=== PATIENT | female | born 1930 | race Caucasian/White ===

== ENCOUNTER 2016-06-20 02:45 | Observation (INO) | payer MEDICARE ==
[2016-06-20] VITALS (8 sets, daily range): BP systolic 144–194; BP diastolic 67–96; PULSE 77–98; RESP 16–24; TEMP 96.9–97.7; O2SAT 93–99
[~2016-06-20 02:45] MED LIST: HYDR-3534 PO; LEVO OU; LISI-515 PO; MIRA25TA PO; [UNRECOGNIZED DRUG - CODE] EACH EYE
[2016-06-20 03:21] LABS: HEMATOCRIT 33.1 % (35.0-46.0); MEAN CORPUSCULAR HEMOGLOBIN 30.9 PG (27.0-34.0); MEAN CORPUSCULAR HGB CONC 33.2 % (32.0-36.0); PLATELET COUNT 227 TH/MM3 (150-450); RED BLOOD COUNT 3.56 MIL/MM3 (4.00-5.30); RED CELL DISTRIBUTION WIDTH 14.1 % (11.6-17.2); REVIEW FLAG FINAL; WHITE BLOOD COUNT 6.7 TH/MM3 (4.0-11.0)
[2016-06-20 03:47] LABS: APTT (PATIENT) 19.6 SEC (24.3-30.1); INTERNATIONAL NORMALIZED RATIO 0.9 RATIO; PROTHROMBIN TIME - PATIENT 10.1 SEC (9.8-11.6)
[2016-06-20] MEDS ORDERED: TOBRSUS9 EACH EYE (04:33)
[2016-06-20 04:54] LABS: BICARBONATE 30.6 MEQ/L (21.0-32.0)
[2016-06-20 04:59] LABS: BLOOD, URINE NEG (NEG); GLUCOSE,URINE NEG (NEG); HYALINE CAST, URINE 1 /lpf (RARE); KETONE, URINE 10 mg/dL (NEG); NITRITE,URINE NEG (NEG); PH, URINE 6.5 (5.0-8.5); SQUAMOUS EPITHELIAL CELL URINE <1 /hpf (0-5); URINE COLOR YELLOW (YELLW/STRAW)
[2016-06-20 05:01] LABS: COMMENT (UR) CATH-CULT NOT IND; CULTURE IF INDICATED CATH CULTURE NOT IND
--- NOTE | 2016-06-20 05:29 | PD ---
HPI Chief Complaint: Altered Mental Status Time Seen by Provider: 05:28 Travel History International Travel<30 days: No Contact w/Intl Traveler<30days: No Traveled to known affect area: No History of Present Illness HPI The patient is a 5 years old. She arrives with her health care provider and her daughter. She does have a history of dementia with a gradual decline over the last several months. The patient yesterday had difficulty ambulating evidently dragging her right foot behind her which was abnormal. Later that evening she had a fall however made no call to her [employer]. She is found on the floor. Throughout the course of the day yesterday she was intermittently aphasic. She had a left facial droop and one time. Family member describes difficulty finding words. At one point slurred speech was observed. She arrives to the ER without any neurologic deficit or specific complaint however the family is concerned the patient might be dehydrated. Patient has history of HOUSEHOLD PERSONAL ASSISTANT shunt performed by Dr. Rush at [facility]. [facility] Past Medical History Arthritis: Yes Cancer: Yes (BREAST) Diabetes: No Diminished Hearing: No Glaucoma: Yes Hepatitis: No Hiatal Hernia: No Hypertension: Yes Thyroid Disease: No ?: Not Past Surgical History Abdominal Surgery: No Cardiac Surgery: No Ear Surgery: No Endocrine Surgery: No Eye Surgery: Yes (BILATERAL CATARACT SX) Genitourinary Surgery: No Gynecologic Surgery: No Oral Surgery: No Pacemaker: No Thoracic Surgery: No Tonsillectomy: Yes Other Surgery: Yes (S/P L BREAST LUMPECTOMY, S/P B/L CATARACT XIN) Social History Alcohol Use: No Tobacco Use: No Substance Use: No Allergies-Medications (Allergen,Severity, Reaction): Coded Allergies: Adhesives (Verified Allergy, Mild, 06/20/16) Ketoprofen (Unverified Allergy, Unknown, 06/20/16) Reported Meds & Prescriptions Reported Meds & Active Scripts Active Reported Tobramycin-Dexamethasone Opth Drops 0.3-0.1 % Susp 1 Drop EACH EYE DAILY Lisinopril 20 Mg Tab 20 Mg PO DAILY Lortab (Hydrocodone-Acetaminophen) 7.5-325 Mg Tab 1 Tab PO Q6H PRN Myrbetriq (Mirabegron) 25 Mg Tab 25 Mg PO DAILY Betagan Opth Drops (Levobunolol HCl) 0.5% Drops 1-2 Drop EACH EYE BID Review of Systems Except as stated in HPI: all other systems reviewed are Neg Physical Exam Narrative GENERAL: 85-year-old female pleasant no acute distress SKIN: Warm and dry. HEAD: Atraumatic. Normocephalic. EYES: Pupils equal and round. No scleral icterus. No injection or drainage. ENT: No nasal bleeding or discharge. Mucous membranes pink and moist. NECK: Trachea midline. No JVD. CARDIOVASCULAR: Regular rate and rhythm. No murmur appreciated. RESPIRATORY: No accessory muscle use. Clear to auscultation. Breath sounds equal bilaterally. GASTROINTESTINAL: Abdomen soft, non-tender, nondistended. Hepatic and splenic margins not palpable. MUSCULOSKELETAL: No obvious deformities. No clubbing. No cyanosis. No edema. NEUROLOGICAL: Awake and alert. No obvious cranial nerve deficits. Motor grossly within normal limits. Normal speech. PSYCHIATRIC: Appropriate mood and affect; insight and judgment normal. Data Data Last Documented VS Vital Signs Date Time Temp Pulse Resp B/P Pulse Ox O2 Delivery O2 Flow Rate FiO2 06/20/16 06:34 94 16 151/70 94 Room Air 06/20/16 02:53 97.7 Vital signs reviewed Orders Cbc No Diff, Includes Plts (06/20/16 03:00) Basic Metabolic Panel (Bmp) (06/20/16 03:00) Coag Profile (06/20/16 03:02) Urinalysis - C+S If Indicated (06/20/16 04:31) Shuntogram (06/20/16 ) Ct Brain W/O Iv Contrast(Rout) (06/20/16 06:08) Ecg Monitoring (06/20/16 06:08) Iv Access Insert/Monitor (06/20/16 06:08) Oximetry (06/20/16 06:08) Sodium Chloride 0.9% Flush (Ns Flush) (06/20/16 06:15) Sodium Chlor 0.9% 1000 Ml Inj (Ns 1000 M (06/20/16 06:08) Place In Observation (06/20/16 ) Code Status (06/20/16 07:01) Vital Signs (Adult) Q4H (06/20/16 07:01) Activity Oob With Assistance (06/20/16 07:01) Diet Heart Healthy (06/20/16 Breakfast) Sodium Chloride 0.9% Flush (Ns Flush) (06/20/16 07:15) Sodium Chloride 0.9% Flush (Ns Flush) (06/20/16 09:00) Acetaminophen (Tylenol) (06/20/16 07:15) Ondansetron Inj (Zofran Inj) (06/20/16 07:15) Bisacodyl Supp (Dulcolax Supp) (06/20/16 07:15) Magnesium Hydroxide Liq (Milk Of Magnesi (06/20/16 07:15) Pt Request For Service (06/20/16 07:01) Scd Bilateral/Knee High CARLI.BID (06/20/16 07:01) Naloxone Inj (Narcan Inj) (06/20/16 07:15) Consult Neurosurgery (06/20/16 ) Admit Order (Ed Use Only) (06/20/16 07:16) Labs Laboratory Tests Test 06/20/16 06/20/16 06/20/16 03:00 03:36 04:25 White Blood Count 6.7 TH/MM3 Red Blood Count 3.56 MIL/MM3 Hemoglobin 11.0 GM/DL Hematocrit 33.1 % Mean Corpuscular Volume 93.0 FL Mean Corpuscular Hemoglobin 30.9 PG Mean Corpuscular Hemoglobin 33.2 % Concent Red Cell Distribution Width 14.1 % Platelet Count 227 TH/MM3 Mean Platelet Volume 8.6 FL Prothrombin Time 10.1 SEC Prothromb Time International 0.9 RATIO Ratio Activated Partial 19.6 SEC Thromboplast Time Sodium Level 144 MEQ/L Potassium Level 4.0 MEQ/L Chloride Level 108 MEQ/L Carbon Dioxide Level 30.6 MEQ/L Anion Gap 5 MEQ/L Blood Urea Nitrogen 31 MG/DL Creatinine 0.68 MG/DL Estimat Glomerular Filtration 82 ML/MIN Rate Random Glucose 95 MG/DL Calcium Level 8.7 MG/DL Urine Color YELLOW Urine Turbidity CLEAR Urine pH 6.5 Urine Specific Richardson 1.024 Urine Protein TRACE mg/dL Urine Glucose (UA) NEG mg/dL Urine Ketones 10 mg/dL Urine Occult Blood NEG Urine Nitrite NEG Urine Bilirubin NEG Urine Urobilinogen LESS THAN 2.0 MG/DL Urine Leukocyte Esterase NEG Urine RBC LESS THAN 1 /hpf Urine WBC 1 /hpf Urine Squamous Epithelial <1 /hpf Cells Urine Hyaline Casts 1 /lpf Microscopic Urinalysis Comment CATH-CULT NOT IND MDM Medical Decision Making Medical Screen Exam Complete: Yes Emergency Medical Condition: Yes Medical Record Reviewed: Yes Differential Diagnosis Dehydration, UTI, pneumonia, HOUSEH[employer] PERSONAL ASSISTANT shunt diagram abnormality, stroke, TIA, electrolyte imbalance, metabolic disturbance, polypharmacy, intracranial injury Narrative Course CBC & BMP Diagram 06/20/16 03:00 06/20/16 03:36 UA normal Coags normal Last Impressions Head CT 06/20/16 0608 Signed Impressions: Service Date/Time: Monday, June 20, 2016 06:24 - CONCLUSION: 1. No acute intracranial abnormality is identified. 2. Chronic changes include generalized cerebral atrophy and periventricular white matter low attenuation characteristic of chronic microvascular ischemia. 3. A right frontal HOUSEHOLD PERSONAL ASSISTANT shunt is present with tubing in the midline of the frontal horns. Gordo Cary MD 1L NS ordered. D/w Dr Enamorado. HOUSEHOLD PERSONAL ASSISTANT shuntogram pending at time of admission. Consult to neurosurgery placed. Diagnosis Primary Impression: Dehydration Additional Impressions: Facial droop Dysarthria Admitting Information Admitting Physician Requests: Observation Tristin Felder MD Jun 20, 2016 05:29
[2016-06-20] MEDS ORDERED: SODIUM CHLOR 0.9% 1000 ML INJ 1,000 ML IV SCH (06:08)
[2016-06-20] MEDS ORDERED: SODIUM CHLORIDE 0.9% FLUSH 5 ML FLUSH IVF PRN (06:15)
--- NOTE | 2016-06-20 06:36 | RADRPT ---
EXAM DATE/TIME: 06/20/2016 06:24 [facility] COMPARISON: CT BRAIN W/O CONTRAST, December 17, 2012, 8:23. INDICATIONS : Altered mental status. RADIATION DOSE: 36.53 CTDIvol (mGy) MEDICAL HISTORY : Hypertension. Carcinoma, breast. SURGICAL HISTORY : shunt ENCOUNTER: Initial ACUITY: 1 day PAIN SCALE: 0/10 LOCATION: cranial TECHNIQUE: Multiple contiguous axial images were obtained of the head. Using automated exposure control and adj ustment of the mA and/or kV according to patient size, radiation dose was kept as low as reasonably a chievable to obtain optimal diagnostic quality images. FINDINGS: CEREBRUM: There is mild cerebral atrophy and ventricles are normal in size given the degree of atrophy present. There is mild to moderate periventricular white matter low attenuation. Right frontal GUNNER MATE shunt tubin g tip is in the midline of the frontal horns. No evidence of midline shift, mass lesion, hemorrhage or acute infarction. No extra-axial fluid collections are seen. POSTERIOR FOSSA: The cerebellum and brainstem demonstrate no acute finding. The 4th ventricle is midline. The cerebe llopontine angle is unremarkable. EXTRACRANIAL: Visualized sinuses are clear. SKULL: The calvaria is intact. No evidence of skull fracture. CONCLUSION: 1. No acute intracranial abnormality is identified. 2. Chronic changes include generalized cerebral atrophy and periventricular white matter low attenuat ion characteristic of chronic microvascular ischemia. 3. A right frontal GUNNER MATE shunt is present with tubing in the midline of the frontal horns. Gordo Cary MD on June 20, 2016 at 6:32 Board Certified Radiologist. This report was verified electronically.
[2016-06-20] MEDS ORDERED: ACETAMINOPHEN 325 MG TAB PO PRN (07:15)
[2016-06-20] MEDS ORDERED: ONDANSETRON HCL 4 MG/2 ML VIAL IVP PRN (07:15)
[2016-06-20] MEDS ORDERED: BISACODYL 10 MG SUPP PR PRN (07:15)
[2016-06-20] MEDS ORDERED: MAGNESIUM HYDROXIDE SUSP 30 ML CUP PO PRN (07:15)
[2016-06-20] MEDS ORDERED: NALOXONE HCL 0.4 MG/ML AMP IV PRN (07:15)
[2016-06-20] MEDS ORDERED: SODIUM CHLORIDE 0.9% FLUSH 5 ML FLUSH FLUSH PRN (07:15)
--- NOTE | 2016-06-20 08:55 | PD.CONS ---
History of Present Illness Service Neurosurgery Consult Requested By Dr. Banks-emergency room Reason for Consult Evaluate for possible shunt malfunction Primary Care Physician No Primary Care Physician Diagnoses: History of Present Illness Pleasant 85-year-old female with a history of previous CVA in 2012. She reportedly had a history of hydrocephalus prior to the CVA, but did not receive any intervention for this. Following the CVA, she has significant gait deficit , and eventually underwent a ventriculoperitoneal shunt placement by Dr. Rush in [facility] in 2012 which did significantly improve her ambulation. She continued a course of inpatient rehabilitation and did very well and was eventually discharged home approximately February 2013. She has been living at home with assistance and doing relatively well up until last week when she developed some gait difficulty, apparently limping on her dragging her right leg. She does have a history of scoliosis with intermittent low back pain. She also has a history of dementia. In the past 2 or 3 days she has had at least 2 episodes of slurred-garbled speech and also at least one episode of facial drooping. Last evening she had significant speech deficit which has since resolved again. She has also had intermittent headache. No blurred vision, loss of vision, nausea, vomiting, fevers, chills. Review of Systems Constitutional: COMPLAINS OF: Change in appetite, DENIES: Fever, Chills, Dizziness Eyes: DENIES: Diplopia, Vision loss Ears, nose, mouth, throat: DENIES: Vertigo, Throat pain Respiratory: DENIES: Cough, Shortness of breath Cardiovascular: DENIES: Chest pain, Palpitations Gastrointestinal: DENIES: Abdominal pain, Constipation, Diarrhea, Nausea Musculoskeletal: COMPLAINS OF: Joint pain, Back pain, Neck pain Neurologic: COMPLAINS OF: Abnormal gait, Headache, Localized weakness, Speech Problems, Poor Balance Psychiatric: COMPLAINS OF: Confusion Past Family Social History Allergies: Coded Allergies: Adhesives (Verified Allergy, Mild, 06/20/16) Ketoprofen (Unverified Allergy, Unknown, 06/20/16) Past Medical History Breast cancer Dementia Hypertension Glaucoma Hydrocephalus Previous CVA Past Surgical History Breast lumpectomy Ventriculoperitoneal shunt placement Tonsillectomy Cataract surgery Reported Medications Reported Meds & Active Scripts Active Reported Tobramycin-Dexamethasone Opth Drops 0.3-0.1 % Susp 1 Drop EACH EYE DAILY Lisinopril 20 Mg Tab 20 Mg PO DAILY Lortab (Hydrocodone-Acetaminophen) 7.5-325 Mg Tab 1 Tab PO Q6H PRN Myrbetriq (Mirabegron) 25 Mg Tab 25 Mg PO DAILY Betagan Opth Drops (Levobunolol HCl) 0.5% Drops 1-2 Drop EACH EYE BID Family History No history of neurologic disorders, cancer, cardiac disease per patient to otherwise appears to be somewhat poor historian Social History Lives at home with assistance. No alcohol or tobacco use Physical Exam Vital Signs Vital Signs Date Time Temp Pulse Resp B/P Pulse Ox O2 Delivery O2 Flow Rate FiO2 06/20/16 08:24 98 16 145/67 96 06/20/16 06:34 94 16 151/70 94 Room Air 06/20/16 05:36 94 18 182/81 93 Room Air 06/20/16 02:53 97.7 85 16 144/82 97 Physical Exam GENERAL: This is a well-nourished, well-developed patient, in no apparent distress. SKIN: No rashes, ecchymoses or lesions. Cool and dry. HEAD: Atraumatic. Normocephalic. No temporal or scalp tenderness. Right ventricular peritoneal shunt tract is nontender, no edema or erythema EYES: Sclerae are clear and nonicteric ENT: No facial edema or ecchymosis. Fundi not well seen due to cataracts. Oropharynx clear NECK: Trachea midline. No JVD or lymphadenopathy. Supple, nontender, no meningeal signs. CARDIOVASCULAR: Occasional irregular rhythm. No murmur. Right carotid bruit RESPIRATORY: Clear to auscultation. Breath sounds equal bilaterally. No wheezes , rales, or rhonchi. GASTROINTESTINAL: Abdomen soft, non-tender, nondistended. No hepato-splenomegaly , or palpable masses. No guarding. MUSCULOSKELETAL: Lower extremity edema dorsalis pedis pulses 2+ bilateral. Mild right hip discomfort with range of motion. Mild discomfort right lower lumbar paraspinous region. NEUROLOGICAL: Awake and alert Oriented X person, hospital Speech is clear, slightly slow but without significant dysarthria Conversant and appropriate Follow simple commands with some difficulty Answers questions appropriately Appears to have some diminished judgment and insight Recent and remote memory are moderately impaired No evidence of anxiety or depression Pupils are equal and reactive to accommodation. Extra-ocular movements, visual cisneros to confrontation, facial sensorimotor, tongue, palate, sternocleidomastoid testing, hearing to finger rub testing, and bilateral shoulder shrug are all intact. Sensation is intact to light touch in all extremities Strength normal major flexion and extension groups all extremities Reggie's absent bilaterally No ankle clonus Plantar responses absent bilateral Fine motor movements mildly slowed but within normal limits for age in the bilateral upper extremities Laboratory Laboratory Tests Test 06/20/16 06/20/16 06/20/16 03:00 03:36 04:25 White Blood Count 6.7 Red Blood Count 3.56 Hemoglobin 11.0 Hematocrit 33.1 Mean Corpuscular Volume 93.0 Mean Corpuscular Hemoglobin 30.9 Mean Corpuscular Hemoglobin 33.2 Concent Red Cell Distribution Width 14.1 Platelet Count 227 Mean Platelet Volume 8.6 Prothrombin Time 10.1 Prothromb Time International 0.9 Ratio Activated Partial 19.6 Thromboplast Time Sodium Level 144 Potassium Level 4.0 Chloride Level 108 Carbon Dioxide Level 30.6 Anion Gap 5 Blood Urea Nitrogen 31 Creatinine 0.68 Estimat Glomerular Filtration 82 Rate Random Glucose 95 Calcium Level 8.7 Urine Color YELLOW Urine Turbidity CLEAR Urine pH 6.5 Urine Specific Trinity 1.024 Urine Protein TRACE Urine Glucose (UA) NEG Urine Ketones 10 Urine Occult Blood NEG Urine Nitrite NEG Urine Bilirubin NEG Urine Urobilinogen LESS THAN 2.0 Urine Leukocyte Esterase NEG Urine RBC LESS THAN 1 Urine WBC 1 Urine Squamous Epithelial <1 Cells Urine Hyaline Casts 1 Microscopic Urinalysis Comment CATH-CULT NOT IND Result Diagram: 06/20/16 0300 06/20/16 0336 Imaging 06/20/2016 CT scan head images are reviewed by the undersigned. The shunt catheter is in good position. No evidence of ventriculomegaly or shunt malfunction. No definite acute CVA. Head CT 06/20/16 0608 Signed Impressions: Service Date/Time: Monday, June 20, 2016 06:24 - CONCLUSION: 1. No acute intracranial abnormality is identified. 2. Chronic changes include generalized cerebral atrophy and periventricular white matter low attenuation characteristic of chronic microvascular ischemia. 3. A right frontal [employer] shunt is present with tubing in the midline of the frontal horns. Gordo Cary MD Assessment and Plan Assessment and Plan Impression: 1. Presently no definite evidence of ventriculoperitoneal shunt malfunction. 2. Recent symptoms most consistent with TIA. 3. Possible right carotid bruit 4. History of previous CVA 5. History of hypertension 6. History of dementia Recommendations: Findings were discussed with the patient and her caregiver the emergency room. Discussed with emergency room physician. No neurosurgical intervention planned at this time. Consider further evaluation for possible TIA, carotid ultrasound, echocardiogram. Patient may undergo MRI of the brain if necessary, with a x- ray of the shunt valve prior to MRI imaging to determine the shunt setting and type of valve if necessary. Artie Cleary MD Jun 20, 2016 08:55
[2016-06-20] MEDS: SODIUM CHLORIDE 0.9% FLUSH 5 ML FLUSH FLUSH SCH ×2 (09:00→19:50)
--- NOTE | 2016-06-20 11:19 | RADRPT ---
EXAM DATE/TIME: 06/20/2016 10:22 [facility] COMPARISON: No previous studies available for comparison. INDICATIONS : Patient with intermitten right leg weakness, facial droop, and slurred speach in need of shunt series . MEDICAL HISTORY : Breast cancer, Dementia, Hypertension, Glaucoma, Hydrocephalus, CVA 2012 SURGICAL HISTORY : Breast lumpectomy, Ventriculoperitoneal shunt placement, Tonsillectomy, Cataract surgery ENCOUNTER: Initial ACUITY: 2 days PAIN SCORE: 5/10 LOCATION: Left Hip FINDINGS: Radiograph of the skull, neck, chest and abdomen performed to evaluate shunt patency. The shunt cath eter is seen entering the right frontal region with its tip in the region of the body of the right ve ntricle The catheter is continuous in its course terminating in the mid lower pelvis. No catheter disruption is identified. The visualized heart, lungs and abdominal structures are intact. CONCLUSION: Intact shunt. Av Bagley MD on June 20, 2016 at 11:16 Board Certified Radiologist. This report was verified electronically.
[2016-06-20] MEDS ORDERED: TOBRSUS9 RIGHT EYE (16:29)
--- NOTE | 2016-06-20 16:29 | HHI.HP ---
HPI Service [facility] Hospitalists Primary Care Physician No Primary Care Physician Admission Diagnosis Dehydration, Fall, AMS Chief Complaint: Fall, neurological deficit Travel History International Travel<30 Days: No Contact w/Intl Traveler <30 Da: No Traveled to Known Affected Are: No History of Present Illness 85-year-old female with a history of previous CVA in 2012, hx of hydrocephalus s /p VPS placement, and dementia with a gradual decline over the last several months. The patient presented to the ED at [facility] on 06/19/16 with difficulty ambulating. Pt reportedly had difficulty ambulating on 06/19 and was dragging her right foot behind her and she had a fall however made no call to her [employer]. She was found on the floor. Pts manager intensive care unit reported that throughout the course of the day yesterday she was intermittently aphasic and had a left facial droop and one time. Pts family also reported at one point the pt had difficulty finding her worked and was slurring her speech. She arrived to the ER without any neurologic deficit or specific complaint however the family was concerned the patient might be dehydrated. Patient has history of REPAIRER CONTROLLER TESTER shunt performed by Dr. Rush at [facility] in 2012. Prior to this she had a CVA and had significant gait deficit, but after the ventriculoperitoneal shunt placement the ambulation significantly improved. She had a Head CT which noted no acute intracranial abnormality is identified, chronic changes include generalized cerebral atrophy and periventricular white matter low attenuation characteristic of chronic microvascular ischemia, and a right frontal REPAIRER CONTROLLER TESTER shunt is present with tubing in the midline of the frontal horns. Pt has been seen by Dr. Cleary and feels that her symptoms are likley more related to a TIA. Shunt study was performed and was negative. 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 Chronic back pain/spinal stenosis Past Surgical History Breast lumpectomy Ventriculoperitoneal shunt placement Tonsillectomy Cataract surgery Reported Medications -Tobramycin-Dexamethasone Opth Drops 0.3-0.1 % Susp 1 Drop RIGHT EYE DAILY -Lortab 7.5-325 Mg Tab 1 Tab PO Q6H PRN -Myrbetriq 25 Mg PO DAILY -Betagan Opth Drops (Levobunolol HCl) 0.5% Drops 1-2 Drop EACH EYE BID ?Lisinopril 2.5 Mg PO DAILY ?Meloxicam 7.5mg PO DAILY Allergies: Coded Allergies: Adhesives (Verified Allergy, Mild, 06/20/16) Ketoprofen (Unverified Allergy, Unknown, 06/20/16) Family History Mother with hx of Alzheimer's disease Father with hx of CVA Social History Denies any alcohol, tobacco or illicit drug use Pt is a , her in 2013 Pt has a caregiver, Karie Juares, who helps take care of her. Physical Exam Vital Signs Vital Signs Date Time Temp Pulse Resp B/P Pulse Ox O2 Delivery O2 Flow Rate FiO2 06/20/16 12:12 95 Room Air 06/20/16 12:06 88 24 166/75 95 Room Air 06/20/16 08:24 98 16 145/67 96 06/20/16 06:34 94 16 151/70 94 Room Air 06/20/16 05:36 94 18 182/81 93 Room Air 06/20/16 02:53 97.7 85 16 144/82 97 Physical Exam GENERAL: This is a well-nourished, well-developed patient, in no apparent distress. HEENT: Atraumatic. Normocephalic. No temporal or scalp tenderness. No scleral icterus. Airway patent. NECK: Trachea midline, supple, nontender. CARDIO: Regular RESP: CTA bilaterally. No wheezes, rales, or rhonchi. ABD: +BS, soft, non-tender, nondistended. EXT: Extremities without clubbing, cyanosis, or edema. NEURO: Awake and alert. Motor and sensory grossly within normal limits. Normal speech. Laboratory Laboratory Tests Test 06/20/16 06/20/16 06/20/16 03:00 03:36 04:25 White Blood Count 6.7 Red Blood Count 3.56 Hemoglobin 11.0 Hematocrit 33.1 Mean Corpuscular Volume 93.0 Mean Corpuscular Hemoglobin 30.9 Mean Corpuscular Hemoglobin 33.2 Concent Red Cell Distribution Width 14.1 Platelet Count 227 Mean Platelet Volume 8.6 Prothrombin Time 10.1 Prothromb Time International 0.9 Ratio Activated Partial 19.6 Thromboplast Time Sodium Level 144 Potassium Level 4.0 Chloride Level 108 Carbon Dioxide Level 30.6 Anion Gap 5 Blood Urea Nitrogen 31 Creatinine 0.68 Estimat Glomerular Filtration 82 Rate Random Glucose 95 Calcium Level 8.7 Urine Color YELLOW Urine Turbidity CLEAR Urine pH 6.5 Urine Specific Snow 1.024 Urine Protein TRACE Urine Glucose (UA) NEG Urine Ketones 10 Urine Occult Blood NEG Urine Nitrite NEG Urine Bilirubin NEG Urine Urobilinogen LESS THAN 2.0 Urine Leukocyte Esterase NEG Urine RBC LESS THAN 1 Urine WBC 1 Urine Squamous Epithelial <1 Cells Urine Hyaline Casts 1 Microscopic Urinalysis Comment CATH-CULT NOT IND Result Diagram: 06/20/16 0300 06/20/16 0336 Imaging Last Impressions Shunt Study (Imaging) 06/20/16 1020 Signed Impressions: Service Date/Time: Monday, June 20, 2016 10:22 - CONCLUSION: Intact shunt. Av Bagley MD Head CT 06/20/16 0608 Signed Impressions: Service Date/Time: Monday, June 20, 2016 06:24 - CONCLUSION: 1. No acute intracranial abnormality is identified. 2. Chronic changes include generalized cerebral atrophy and periventricular white matter low attenuation characteristic of chronic microvascular ischemia. 3. A right frontal REPAIRER CONTROLLER TESTER shunt is present with tubing in the midline of the frontal horns. Gordo Cary MD Septic Shock Reassessment Heart: Regular rate and rhythm Lungs: Clear Skin: Warm Peripheral Pulses: Bounding Right Radial Bounding Left Radial Bounding Right Popliteal Bounding Left Popliteal Bounding Right Dorsalis Pedis Bounding Left Dorsalis Pedis Bounding Right Posterior Tibial Bounding Left Posterior Tibial Assessment and Plan Problem List: (1) Gait disturbance Status: Acute Plan: - Pt admitted with new onset gait disturbance with dragging her right foot behind her and she had a fall at home. - Pts manager intensive care unit reported that throughout the course of the day yesterday she was intermittently aphasic and had a left facial droop and one time and one point the pt had difficulty finding her worked and was slurring her speech. - She arrived to the ER without any neurologic deficit or specific complaint - Patient has history of REPAIRER CONTROLLER TESTER shunt performed by Dr. Rush at [facility] in 2012. Prior to this she had a CVA and had significant gait deficit, but after the ventriculoperitoneal shunt placement the ambulation significantly improved. - She had a Head CT which noted no acute intracranial abnormality is identified , chronic changes include generalized cerebral atrophy and periventricular white matter low attenuation characteristic of chronic microvascular ischemia, and a right frontal REPAIRER CONTROLLER TESTER shunt is present with tubing in the midline of the frontal horns. - Pt has been seen by Dr. Cleary. Shunt study was performed and was negative. - Symptoms may have been related to a TIA given her history - Check MRI/MRA - Carotid US - Holter monitor - 2D echo - Allow for permissive HTN - PRN BP control for systolic greater than 220 - PT evaluation - DVT prophylaxis with SCDs - Pt may need SNF placement at the end of this hospitalization (2) Dysarthria Status: Acute Plan: - See above. (3) HTN (hypertension) Status: Chronic Plan: - See above. (4) Hx of hydrocephalus Status: Resolved Plan: - See above. (5) History of CVA (cerebrovascular accident) Status: Resolved Plan: - See above. Assessment and Plan Patient examined. Assessment and plan formulated with Mary Gann PA-C. I agree with the above. Problem Qualifiers (1) HTN (hypertension): Qualified Code: I10 - Essential hypertension Mary Gann Jun 20, 2016 16:29 Casey Enamorado DO Jun 25, 2016 19:05
[2016-06-20] MEDS ORDERED: ENALAPRILAT 1.25 MG/ML VIAL IV PRN (16:30)
[2016-06-20] MEDS ORDERED: LABETALOL HCL 100 MG/20 ML VIAL IV PRN (16:30)
[2016-06-20] MEDS ORDERED: ACETAMINOPHEN/HYDROcodone 325 MG/7.5 MG TAB PO PRN (18:00)
--- NOTE | 2016-06-20 18:57 | RADRPT ---
EXAM DATE/TIME: 06/20/2016 18:11 [facility] COMPARISON: No previous studies available for comparison. INDICATIONS : Transient ischemic attack. MEDICAL HISTORY : Hypertension. Glaucoma. Dementia. Arthritis. Osteoporosis. Breast cancer. Blood transfusions. SURGICAL HISTORY : Tonsillectomy. Breast lumpectomy. Bilateral cataract removal. ENCOUNTER: Initial ACUITY: 2 days PAIN SCORE: 0/10 LOCATION: Bilateral neck PEAK SYSTOLIC VELOCITIES (cm/sec): ICA/CCA RATIO: Right: 1.4 Left: 0.8 ICA: Right: 102 Left: 78 CCA: Right: 75 Left: 96 ECA: Right: 100 Left: 81 VERTEBRAL: Right: 89 antegrade Left: 124 antegrade Elevated flow velocities and ICA/CCA ratios have been found to correlate with increased degrees of vessel stenosis, calculated as percentage of diameter relative to a normal segment of distal ICA/CCA FINDINGS: Antegrade flow is seen in both vertebral arteries. There is moderate atherosclerotic plaquing at the origin of both ICAs without any significant stenosis. CONCLUSION: No evidence for hemodynamically significant stenosis. Lucia Yanez MD on June 20, 2016 at 18:55 Board Certified Radiologist. This report was verified electronically.
[2016-06-20] MEDS: LEVOBUNOLOL HCL 0.5% OPHT SOLN 5 ML BTL EACH EYE SCH (19:50)
[2016-06-20] MEDS ORDERED: LORazepam 2 MG/ML VIAL IV PRN (23:00)
[2016-06-21 03:57] VITALS: BP 184/78; PULSE 85; RESP 20; TEMP 98; O2SAT 95
[2016-06-21 08:28] VITALS: BP 179/87; PULSE 87; RESP 18; TEMP 96.3; O2SAT 95
[2016-06-21] MEDS: LEVOBUNOLOL HCL 0.5% OPHT SOLN 5 ML BTL EACH EYE SCH ×2 (10:50→20:44)
[2016-06-21] MEDS: TOBRAMYCIN 0.3%/DEXAMETHASONE 0.1% OPHT SUSP 5 ML BTL RIGHT EYE SCH (10:50)
[2016-06-21] MEDS: SODIUM CHLORIDE 0.9% FLUSH 5 ML FLUSH FLUSH SCH ×2 (10:51→20:44)
[2016-06-21 13:45] VITALS: BP 156/72; PULSE 90; RESP 16; TEMP 96.5; O2SAT 96
--- NOTE | 2016-06-21 13:48 | HHI.PR ---
Subjective Remarks No new complaints. No focal weakness. No difficulties swallowing. Objective Vitals Vital Signs Date Time Temp Pulse Resp B/P Pulse Ox O2 Delivery O2 Flow Rate FiO2 06/21/16 08:28 96.3 87 18 179/87 95 06/21/16 03:57 98.0 85 20 184/78 95 06/20/16 23:45 97.5 83 18 186/96 99 06/20/16 21:03 97.6 77 18 177/76 96 06/20/16 16:16 96.9 83 18 194/74 96 Result Diagram: 06/20/16 0300 06/20/16 0336 Imaging Last Impressions Shunt Study (Imaging) 06/20/16 1020 Signed Impressions: Service Date/Time: Monday, June 20, 2016 10:22 - CONCLUSION: Intact shunt. Av Bagley MD Head CT 06/20/16 0608 Signed Impressions: Service Date/Time: Monday, June 20, 2016 06:24 - CONCLUSION: 1. No acute intracranial abnormality is identified. 2. Chronic changes include generalized cerebral atrophy and periventricular white matter low attenuation characteristic of chronic microvascular ischemia. 3. A right frontal GLASS NOVELTY MAKER shunt is present with tubing in the midline of the frontal horns. Gordo Cary MD Objective Remarks GENERAL: This is a well-nourished, well-developed patient, in no apparent distress. CARDIOVASCULAR: Regular rate and rhythm without murmurs, gallops, or rubs. RESPIRATORY: Clear to auscultation. Breath sounds equal bilaterally. No wheezes , rales, or rhonchi. GASTROINTESTINAL: Abdomen soft, non-tender, nondistended. Normal active bowel sounds MUSCULOSKELETAL: Extremities without clubbing, cyanosis, or edema. NEURO: Alert & Oriented x3, but confused at times. SIEGEL A/P Problem List: (1) Gait disturbance Status: Acute Plan: - Pt admitted with new onset gait disturbance with dragging her right foot behind her and she had a fall at home. - Pts healthcare educator reported that throughout the course of the day yesterday she was intermittently aphasic and had a left facial droop and one time and one point the pt had difficulty finding her worked and was slurring her speech. - She arrived to the ER without any neurologic deficit or specific complaint - Patient has history of GLASS NOVELTY MAKER shunt performed by Dr. Rush at [facility] in 2012. Prior to this she had a CVA and had significant gait deficit, but after the ventriculoperitoneal shunt placement the ambulation significantly improved. - She had a Head CT which noted no acute intracranial abnormality is identified , chronic changes include generalized cerebral atrophy and periventricular white matter low attenuation characteristic of chronic microvascular ischemia, and a right frontal GLASS NOVELTY MAKER shunt is present with tubing in the midline of the frontal horns. - Pt has been seen by Dr. Cleary. Shunt study was performed and was negative. - Symptoms may have been related to a TIA given her history - Check MRI/MRA --> still pending, awaiting shunt study prior to ensure MRI will NOT harm shunt setting - Carotid US (06/20/16) --> NO hemodynamically significant stenosis - Holter monitor --> pending - 2D echo --> pending - Allow for permissive HTN - PRN BP control for systolic greater than 220 - PT recommends SNF - DVT prophylaxis with SCDs (2) Dysarthria Status: Acute Plan: - See above. (3) HTN (hypertension) Status: Chronic Plan: - See above. (4) Hx of hydrocephalus Status: Resolved Plan: - See above. (5) History of CVA (cerebrovascular accident) Status: Resolved Plan: - See above. Problem Qualifiers (1) HTN (hypertension): Qualified Code: I10 - Essential hypertension Casey Enamorado DO Jun 21, 2016 13:48
--- NOTE | 2016-06-21 15:00 | RADRPT ---
EXAM DATE/TIME: 06/21/2016 14:06 [facility] COMPARISON: No previous studies available for comparison. INDICATIONS : Assess shunt setting for MRI. MEDICAL HISTORY : CVA SURGICAL HISTORY : Shunt. ENCOUNTER: Initial ACUITY: 1 day PAIN SCORE: 0/10 LOCATION: Skull. FINDINGS: A two view examination of the skull demonstrates no evidence of fracture. The pituitary fossa is nor mal in configuration. No radiopaque foreign bodies are seen. The shunt valve correlates with P/L1.5 CONCLUSION: The shunt valve correlates with P/L1.5 Rashaun Velazquez MD on June 21, 2016 at 14:56 Board Certified Radiologist. This report was verified electronically.
--- NOTE | 2016-06-21 15:01 | RADRPT ---
EXAM DATE/TIME: 06/21/2016 14:50 [facility] COMPARISON: No previous studies available for comparison. INDICATIONS : Right hip pain. Fall. MEDICAL HISTORY : None. SURGICAL HISTORY : None. ENCOUNTER: Initial ACUITY: 3 days PAIN SCORE: 7/10 LOCATION: Right pelvis FINDINGS: A two view examination of the right hip was performed. The primary and secondary trabecular pattern of the femoral neck is intact. The hip joint is of normal width without significant sclerosis or bon y hypertrophy. The acetabulum is grossly intact. CONCLUSION: No acute fracture. Rashaun Velazquez MD on June 21, 2016 at 14:59 Board Certified Radiologist. This report was verified electronically.
[2016-06-21 16:40] VITALS: BP 162/80; PULSE 82; RESP 18; TEMP 96.9; O2SAT 98
--- NOTE | 2016-06-21 16:43 | RADRPT ---
EXAM DATE/TIME: 06/21/2016 15:00 [facility] COMPARISON: SKULL LIMITED (<4 VWS), June 21, 2016, 14:06. INDICATIONS : Assess shunt setting post MRI MEDICAL HISTORY : CVA SURGICAL HISTORY : Shunt ENCOUNTER: Subsequent ACUITY: 1 day PAIN SCORE: 0/10 LOCATION: cranial FINDINGS: Compared with the study performed before MRI the shunt valve setting has changed and is now in the P ./L 2.5 position approximately. Technologist note was added. CONCLUSION: 1. Shunt valve setting has changed post MRI. Davion Luna MD on June 21, 2016 at 16:38 Board Certified Radiologist. This report was verified electronically.
--- NOTE | 2016-06-21 17:09 | HHI.NSPN ---
History Interval History Patient was recently history of intermittent lower extremity weakness, speech difficulty, facial paresis, suggestive of a TIA 06/21/16: MRA MRI brain obtained. Medtronic adjustable shunt valve changed from pressure of 1.5 to a pressure setting of 2.5 post-MRI. Exam Results Vital Signs Date Time Temp Pulse Resp B/P Pulse Ox O2 Delivery O2 Flow Rate FiO2 06/21/16 16:40 96.9 82 18 162/80 98 06/20/16 12:12 Room Air Medical Decision Making Impression and Plan Impression: 1. No evidence of ventricular peritoneal shunt malfunction. Possible TIA. Plan: Shunt adjustment post-MRI back to level of 1.5 as noted on preoperative x-ray. She notes otherwise appears to be working properly Artie Cleary MD Jun 21, 2016 17:09
[2016-06-21 19:49] VITALS: BP 181/81; PULSE 89; RESP 18; O2SAT 96
--- NOTE | 2016-06-21 19:57 | RADRPT ---
EXAM DATE/TIME: 06/21/2016 14:55 [facility] COMPARISON: No previous studies available for comparison. INDICATIONS : Confusion. MEDICAL HISTORY : Renal insufficiency, chronic. Carcinoma, breast. Dementia. CVA, hypertension SURGICAL HISTORY : Shunt placement. ENCOUNTER: Initial ACUITY: 1 day PAIN SCORE: 0/10 LOCATION: cranial TECHNIQUE: Multiplanar, multisequence MRI of the brain was performed without contrast. FINDINGS: A right frontal ventriculostomy tube is present with tip near foramen of Monro. The ventricular size is stable compared with recent CT exam from June 20. There is susceptibility artifact around the s gomez apparatus on the surface of the right calvarium. Mild to moderate chronic white matter ischemic changes present in the periventricular region. No recent infarct is identified. No mass effect or mid line shift. CONCLUSION: 1. Right frontal ventriculostomy tube tip near foramen of Srivastava. Mild to moderate chronic white yadi er ischemic changes. No recent infarct, mass effect or shift. Davion Luna MD on June 21, 2016 at 19:51 Board Certified Radiologist. This report was verified electronically.
--- NOTE | 2016-06-21 19:58 | RADRPT ---
EXAM DATE/TIME: 06/21/2016 14:55 [facility] COMPARISON: No previous studies available for comparison. INDICATIONS : Confusion. MEDICAL HISTORY : Renal insufficiency, chronic. Carcinoma, breast. Dementia. CVA, hypertension. SURGICAL HISTORY : Shunt placement. ENCOUNTER: Initial ACUITY: 1 day PAIN SCORE: 0/10 LOCATION: cranial Please note a normal MRA of the brain does not entirely exclude the possibility of a small aneurysm, nor the possibility of distal intracranial vessel disease. TECHNIQUE: 3D time of flight MRA was performed. Source images, multiplanar STS MIP, and 3D volume MIP reconstru ctions were reviewed. FINDINGS: There is excellent visualization of the major intracranial arteries out to the second-order branch ve ssels. There is no evidence for aneurysm, vessel truncation or stenosis, and no evidence for vascula r malformation. CONCLUSION: Normal examination for a patient of this age. Davion Luna MD on June 21, 2016 at 19:55 Board Certified Radiologist. This report was verified electronically.
[2016-06-21 23:53] VITALS: BP 179/86; PULSE 60; RESP 18; TEMP 97.6; O2SAT 95
[2016-06-22 08:03] VITALS: BP 97/54; PULSE 125; RESP 16; TEMP 96.4; O2SAT 94
[2016-06-22] MEDS: TOBRAMYCIN 0.3%/DEXAMETHASONE 0.1% OPHT SUSP 5 ML BTL RIGHT EYE SCH (11:12)
[2016-06-22] MEDS: LEVOBUNOLOL HCL 0.5% OPHT SOLN 5 ML BTL EACH EYE SCH ×2 (11:12→23:15)
[2016-06-22] MEDS: SODIUM CHLORIDE 0.9% FLUSH 5 ML FLUSH FLUSH SCH ×2 (11:13→23:15)
[2016-06-22 11:20] VITALS: BP 164/76; PULSE 91; RESP 16; TEMP 97.3; O2SAT 97
--- NOTE | 2016-06-22 11:51 | HHI.NSPN ---
History Interval History Patient was recently history of intermittent lower extremity weakness, speech difficulty, facial paresis, suggestive of a TIA 06/21/16: MRA MRI brain obtained. Medtronic adjustable shunt valve changed from pressure of 1.5 to a pressure setting of 2.5 post-MRI. System Review Comments States that she had another episode where she felt "strange", possible mild confusion, last night. Presently no complaint of headache, dizziness, speech difficulty, weakness or numbness in the extremities her face. No blurred vision or diplopia. States that she has had at least mild memory loss for a long time. Exam Results Vital Signs Date Time Temp Pulse Resp B/P Pulse Ox O2 Delivery O2 Flow Rate FiO2 06/22/16 11:20 97.3 91 16 164/76 97 06/20/16 12:12 Room Air Physical Examination GENERAL: This is a well-nourished, well-developed patient, in no apparent distress. SKIN: No rashes, ecchymoses or lesions. HEAD: Normocephalic, nontender EYES: Sclerae are clear and nonicteric. No periorbital edema or ecchymosis ENT: No CSF otorrhea or rhinorrhea. No facial fracture or deformity NECK: Supple, nontender, no meningeal signs. CARDIOVASCULAR: Regular rate and rhythm without murmurs, gallops, or rubs. Probable right carotid bruit RESPIRATORY: Clear to auscultation. Breath sounds equal bilaterally. No wheezes , rales, or rhonchi. GASTROINTESTINAL: Abdomen soft, non-tender, nondistended. No hepato-splenomegaly , or palpable masses. No guarding. Normal bowel sounds MUSCULOSKELETAL: Extremities without cyanosis, or edema. No joint tenderness, effusion, or edema noted. No calf tenderness. Posterior tibial pulse 2+ bilateral NEUROLOGICAL: Awake and alert Oriented X person, hospital, month Speech is clear, slightly hesitant Conversant and appropriate Follow simple commands well Answers questions appropriately Reasonable judgment and insight Recent and remote memory are mildly to moderately diminished No evidence of anxiety or depression Pupils are equal and reactive to accommodation. Extra-ocular movements, visual cisneros to confrontation, facial sensorimotor, tongue, palate, sternocleidomastoid testing, hearing to finger rub testing, and bilateral shoulder shrug are all intact. Sensation is intact to light touch in all extremities Strength normal major flexion and extension groups all extremities Reggie's absent bilaterally No ankle clonus Plantar responses absent bilateral Fine motor movements intact upper extremities Lab, Micro, Other Results Last Impressions Skull X-Ray 06/21/16 0000 Signed Impressions: Service Date/Time: Tuesday, June 21, 2016 15:00 - CONCLUSION: 1. Shunt valve setting has changed post MRI. Davion Luna MD Hip X-Ray 06/21/16 0000 Signed Impressions: Service Date/Time: Tuesday, June 21, 2016 14:50 - CONCLUSION: No acute fracture. Rashaun Velazquez MD Head Magnetic Resonance Angiography 06/21/16 0000 Signed Impressions: Service Date/Time: Tuesday, June 21, 2016 14:55 - CONCLUSION: Normal examination for a patient of this age. Davion Luna MD Brain MRI 06/21/16 0000 Signed Impressions: Service Date/Time: Tuesday, June 21, 2016 14:55 - CONCLUSION: 1. Right frontal ventriculostomy tube tip near foramen of Srivastava. Mild to moderate chronic white matter ischemic changes. No recent infarct, mass effect or shift. Davion Luna MD Shunt Study (Imaging) 06/20/16 1020 Signed Impressions: Service Date/Time: Monday, June 20, 2016 10:22 - CONCLUSION: Intact shunt. Av Bagley MD Head CT 06/20/16 0608 Signed Impressions: Service Date/Time: Monday, June 20, 2016 06:24 - CONCLUSION: 1. No acute intracranial abnormality is identified. 2. Chronic changes include generalized cerebral atrophy and periventricular white matter low attenuation characteristic of chronic microvascular ischemia. 3. A right frontal COFFEE BREWER shunt is present with tubing in the midline of the frontal horns. Gordo Cary MD Carotid Artery Ultrasound 06/20/16 0000 Signed Impressions: Service Date/Time: Monday, June 20, 2016 18:11 - CONCLUSION: No evidence for hemodynamically significant stenosis. Lucia Yanez MD Medical Decision Making Impression and Plan Impression: 1. No evidence of ventricular peritoneal shunt malfunction. Possible TIA. Plan: Shunt adjustment performed today post-MRI back to level of 1.5 as noted on preoperative x-ray. Shunt otherwise appears to be functioning properly. No neurosurgical intervention planned at the present time. Stable for discharge from neurosurgery standpoint. Outpatient neurosurgery follow-up as needed. She is a patient of Dr. Rush, and can follow up with him if further problems arise. Artie Cleary MD Jun 22, 2016 11:51
[2016-06-22] MEDS ORDERED: HYDR-3534 PO (13:48)
--- NOTE | 2016-06-22 13:57 | HHI.PR ---
Subjective Remarks No new complaints. Objective Vitals Vital Signs Date Time Temp Pulse Resp B/P Pulse Ox O2 Delivery O2 Flow Rate FiO2 06/22/16 11:20 97.3 91 16 164/76 97 06/22/16 08:03 96.4 125 16 97/54 94 06/21/16 23:53 97.6 60 18 179/86 95 06/21/16 19:49 89 18 181/81 96 06/21/16 16:40 96.9 82 18 162/80 98 Result Diagram: 06/20/16 0300 06/20/16 0336 Imaging Last Impressions Skull X-Ray 06/21/16 0000 Signed Impressions: Service Date/Time: Tuesday, June 21, 2016 15:00 - CONCLUSION: 1. Shunt valve setting has changed post MRI. Davion Luna MD Hip X-Ray 06/21/16 0000 Signed Impressions: Service Date/Time: Tuesday, June 21, 2016 14:50 - CONCLUSION: No acute fracture. Rashaun Velazquez MD Head Magnetic Resonance Angiography 06/21/16 0000 Signed Impressions: Service Date/Time: Tuesday, June 21, 2016 14:55 - CONCLUSION: Normal examination for a patient of this age. Davion Luna MD Brain MRI 06/21/16 0000 Signed Impressions: Service Date/Time: Tuesday, June 21, 2016 14:55 - CONCLUSION: 1. Right frontal ventriculostomy tube tip near foramen of Srivastava. Mild to moderate chronic white matter ischemic changes. No recent infarct, mass effect or shift. Davion Luna MD Shunt Study (Imaging) 06/20/16 1020 Signed Impressions: Service Date/Time: Monday, June 20, 2016 10:22 - CONCLUSION: Intact shunt. Av Bagley MD Head CT 06/20/16 0608 Signed Impressions: Service Date/Time: Monday, June 20, 2016 06:24 - CONCLUSION: 1. No acute intracranial abnormality is identified. 2. Chronic changes include generalized cerebral atrophy and periventricular white matter low attenuation characteristic of chronic microvascular ischemia. 3. A right frontal FOUNDRY SUPERINTENDANT shunt is present with tubing in the midline of the frontal horns. Gordo Cary MD Carotid Artery Ultrasound 06/20/16 0000 Signed Impressions: Service Date/Time: Monday, June 20, 2016 18:11 - CONCLUSION: No evidence for hemodynamically significant stenosis. Lucia Yanez MD Objective Remarks GENERAL: This is a well-nourished, well-developed patient, in no apparent distress. CARDIOVASCULAR: Regular rate and rhythm without murmurs, gallops, or rubs. RESPIRATORY: Clear to auscultation. Breath sounds equal bilaterally. No wheezes , rales, or rhonchi. GASTROINTESTINAL: Abdomen soft, non-tender, nondistended. Normal active bowel sounds MUSCULOSKELETAL: Extremities without clubbing, cyanosis, or edema. NEURO: Alert & Oriented x3, but confused at times. SIEGEL A/P Problem List: (1) Gait disturbance Status: Acute Plan: - Pt admitted with new onset gait disturbance with dragging her right foot behind her and she had a fall at home. - Pts reproductive healthcare assistant reported that throughout the course of the day yesterday she was intermittently aphasic and had a left facial droop and one time and one point the pt had difficulty finding her worked and was slurring her speech. - She arrived to the ER without any neurologic deficit or specific complaint - Patient has history of FOUNDRY SUPERINTENDANT shunt performed by Dr. Rush at [facility] in 2012. Prior to this she had a CVA and had significant gait deficit, but after the ventriculoperitoneal shunt placement the ambulation significantly improved. - She had a Head CT which noted no acute intracranial abnormality is identified , chronic changes include generalized cerebral atrophy and periventricular white matter low attenuation characteristic of chronic microvascular ischemia, and a right frontal FOUNDRY SUPERINTENDANT shunt is present with tubing in the midline of the frontal horns. - Pt has been seen by Dr. Cleary. Shunt study was performed and was negative. - Symptoms may have been related to a TIA given her history - MRI (06/21/16) --> NO acute findings - MRA (06/21/16) --> NO acute findings - 06/21/16: MRA MRI brain obtained. Medtronic adjustable shunt valve changed from pressure of 1.5 to a pressure setting of 2.5 post-MRI. - Carotid US (06/20/16) --> NO hemodynamically significant stenosis - Holter monitor --> pending - 2D echo (06/22/16) --> EF 60-65%, grade 1 diastolic dysfunction - resume lisinopril 20mg daily - PRN BP control for systolic greater than 220 - PT recommends SNF - DVT prophylaxis with SCDs - Discharge orders written for SNF in AM 06/23/16 (2) Dysarthria Status: Acute Plan: - See above. (3) HTN (hypertension) Status: Chronic Plan: - See above. (4) Hx of hydrocephalus Status: Resolved Plan: - See above. (5) History of CVA (cerebrovascular accident) Status: Resolved Plan: - See above. Assessment and Plan Patient examined. Assessment and plan formulated with Mary Gann PA-C. I agree with the above. Problem Qualifiers (1) HTN (hypertension): Qualified Code: I10 - Essential hypertension Casey Enamorado DO Jun 22, 2016 13:57
[2016-06-22 15:58] VITALS: BP 175/79; PULSE 91; RESP 16; TEMP 99.8; O2SAT 94
--- NOTE | 2016-06-22 16:06 | EC ---
Study Study Date:06/22/2016 STUDY CONCLUSIONS SUMMARY - Left ventricle: The cavity size was normal. Wall thickness was normal. Systolic function was normal. The estimated ejection fraction was in the range of 60% to 65%. Wall motion was normal; there were no regional wall motion abnormalities. Doppler parameters are consistent with abnormal left ventricular relaxation (grade 1 diastolic dysfunction). - Aortic valve: Mild regurgitation. Valve area: 0.65cm^2(VTI). Valve area: 0.77cm^2 (Vmax). - Mitral valve: Mildly calcified annulus. Mildly thickened leaflets, . There was systolic anterior motion of the chordal structures. Mild regurgitation. - Tricuspid valve: Mild regurgitation. - Pulmonic valve: Mild regurgitation. - Pulmonary arteries: PA peak pressure: 33mm Hg (S). If LV function is below 40, please consider prescribing an ACEI or ARB or document rationale for non-use. PROCEDURE DATA STUDY STATUS: Elective. Procedure: Transthoracic echocardiography. Image quality was fair. Scanning was performed from the parasternal, apical, and subcostal acoustic windows. Study completion: The patient tolerated the procedure well. Transthoracic echocardiography. M-mode, complete 2D, complete spectral Doppler, and color Doppler. Patient status: Inpatient. CARDIAC ANATOMY LEFT VENTRICLE: The cavity size was normal. Wall thickness was normal. Systolic function was normal. The estimated ejection fraction was in the range of 60% to 65%. Wall motion was normal; there were no regional wall motion abnormalities. Doppler parameters are consistent with abnormal left ventricular relaxation (grade 1 diastolic dysfunction). AORTIC VALVE: Trileaflet; mildly thickened leaflets. Doppler: Transvalvular velocity was within the normal range. There was no stenosis. Mild regurgitation. Valve area: 0.65cm^2(VTI). Valve area: 0.77cm^2 (Vmax). Mean gradient: 4mm Hg (S). AORTA: Aortic root: The aortic root was normal in size. MITRAL VALVE: Not well visualized. Mildly calcified annulus. Mildly thickened leaflets, . There was systolic anterior motion of the chordal structures. Doppler: Transvalvular velocity was within the normal range. There was no evidence for stenosis. Mild regurgitation. LEFT ATRIUM: The atrium was normal in size. RIGHT VENTRICLE: The cavity size was normal. Wall thickness was normal. PULMONIC VALVE: Poorly visualized. Doppler: Transvalvular velocity was within the normal range. There was no evidence for stenosis. Mild regurgitation. TRICUSPID VALVE: Structurally normal valve. Doppler: Transvalvular velocity was within the normal range. Mild regurgitation. PULMONARY ARTERY: The main pulmonary artery was normal-sized. Systolic pressure was within the normal range. RIGHT ATRIUM: The atrium was normal in size. PERICARDIUM: There was no pericardial effusion. SYSTEMIC VEINS: Inferior vena cava: The vessel was normal in size. BASIC MEASUREMENTS ADULT Normal Left ventricle LV internal dimension, ED, chordal level, *37.3 mm 43-52 PLAX LV internal dimension, ES, chordal level, 23.3 mm 23-38 PLAX Fractional shortening, chordal level, PLAX 38 % >29 LV posterior wall thickness, ED 8.67 mm IVS/LVPW ratio, ED 1 <1.3 Ventricular septum Septal thickness, ED 8.69 mm Aortic valve Leaflet separation 19 mm 15-26 Aorta Root diameter, ED 31 mm Left atrium Anterior-posterior dimension 28 mm BASIC MEASUREMENTS ADULT Normal Aortic valve Leaflet separation 19 mm 15-26 DOPPLER MEASUREMENTS ADULT Normal Main pulmonary artery Pressure, S *33 mm Hg =30 Aortic valve Peak velocity, S 117 cm/s Mean velocity, S 90.7 cm/s VTI, S 23.5 cm Mean gradient, S 4 mm Hg Valve area, VTI 0.65 cm^2 Valve area, Vmax 0.77 cm^2 Regurgitant velocity, ED 499 cm/s Regurgitant deceleration 2050 cm/s^2 Regurgitant pressure half-time 713 ms Regurgitant gradient, ED 100 mm Hg Mitral valve Peak E-wave velocity 63.6 cm/s Peak A-wave velocity 135 cm/s Peak E/A ratio 0.5 Tricuspid valve Regurgitant peak velocity 246 cm/s Peak RV-RA gradient, S 24 mm Hg Maximal regurgitant velocity 246 cm/s Systemic veins Estimated CVP 10 mm Hg Right ventricle RV pressure, S *34 mm Hg <30 Pulmonic valve Peak velocity, S 37.3 cm/s LEGEND: Mean values are shown as u=mean value. Asterisk (*) barraza values outside specified normal range. Prepared and signed by Elie Liao [id number]
[2016-06-22] MEDS: LISINOPRIL 20 MG TAB PO SCH (16:16)
[2016-06-22 20:30] VITALS: BP 118/55; PULSE 92; RESP 16; TEMP 97.8; O2SAT 96
[2016-06-23 01:03] VITALS: BP 121/65; PULSE 88; RESP 18; TEMP 98; O2SAT 98
[2016-06-23 04:00] VITALS: BP 112/58; PULSE 68; RESP 16; TEMP 97.8; O2SAT 97
[2016-06-23 08:17] VITALS: BP 136/68; PULSE 80; RESP 18; TEMP 97.7; O2SAT 96
[2016-06-23] MEDS: LEVOBUNOLOL HCL 0.5% OPHT SOLN 5 ML BTL EACH EYE SCH (09:00)
[2016-06-23] MEDS: LISINOPRIL 20 MG TAB PO SCH (10:48)
[2016-06-23] MEDS: TOBRAMYCIN 0.3%/DEXAMETHASONE 0.1% OPHT SUSP 5 ML BTL RIGHT EYE SCH (10:49)
--- NOTE | 2016-06-23 12:20 | HM ---
Date Performed: 06/21/2016 Time Performed: 15:54:00 HOOKUP DATE: 06/21/16 03:54:00 PM Sat ANALYSIS START TIME: 06/21/2016 3:59:00 PM ANALYSIS END TIME: 06/22/2016 4:03:00 PM PATIENT AGE: 85 PATIENT HEIGHT PATIENT WEIGHT DRUG LIST PATIENT DIAGNOSIS: AMS TEST NARRATIVE: The patient's average heart rate was 95 BPM. Heart rates greater than 120 B PM were noted 9% of the time. No episodes of bradycardia were noted. No pauses exceeding 2.0 sec onds were noted. 73 ventricular ectopics, which represented < 1% of the total beat count, were no michael. The highest ventricular ectopic frequency occurred from 05:00 AM to 06:00 AM Sun. During this time 19 VE(s) occurred. Ventricular ectopics were observed as 68 isolated beat(s), as 1 couplet(s) a nd as 1 run(s). 76 supraventricular ectopics, which represented < 1% of the total beat count, wer e noted. The highest supraventricular ectopic frequency occurred from 08:00 PM to 09:00 PM Sat. Dur ing this time 13 SVE(s) occurred. In channel 1, a single episode of ST depression (defined as -1. 0 mm or more) occurred at 05:19:19 AM Sun with a maximum depression of -3.8 mm. In channel 2, a sing le episode of ST depression (defined as -1.0 mm or more) occurred at 05:19:19 AM Sun with a maximum d epression of -4.4 mm. Multiple episodes of ST depression (defined as -1.0 mm or more) were noted in channel 3. The maximum depression of -4.3 mm occurred at 05:19:19 AM Sun. RHYTHM CHANGES: 05.00.33 -- 05.48.02 05.48.36 -- 06.12.55 06.13.10 -- 07.07.36 TEST INTERPRETATION: baseline sinus rhyuthm Multiple episodes of suprventricular tachycardia, po ssible atrial fibrillation recorded at 05:05, 05:13, 06:32. rate varied between 162 to 180 bpm. Multi ple PVCs observed. No significant pauses observed No ventricular tachycardia observed. No significant jessica episode There is no entry in thge diary. Base on [id number] score, anticoaguulation should be considered. Signed by : Avis arce
[2016-06-23] MEDS ORDERED: METO25TA3 PO (14:31)
[2016-06-23] MEDS ORDERED: ASPI81CH CHEW (14:31)
--- NOTE | 2016-06-23 14:36 | HHI.DCPOC ---
Discharge Care Plan Diagnosis: (1) Dysarthria (2) Gait disturbance (3) HTN (hypertension) (4) History of CVA (cerebrovascular accident) (5) Hx of hydrocephalus Goals to Promote Your Health * To prevent worsening of your condition and complications * To maintain your health at the optimal level Directions to Meet Your Goals Take your medications as prescribed Follow your dietary instruction Follow activity as directed Keep your appointments as scheduled Take your immunizations and boosters as scheduled If your symptoms worsen call your PCP, if no PCP go to Urgent Care Center or Emergency Room Smoking is Dangerous to Your Health. Avoid second hand smoke Call the 24-hour hour crisis hotline for domestic abuse at Mary Gann Jun 23, 2016 14:36 Casey Enamorado DO Jun 25, 2016 19:08
--- NOTE | 2016-06-23 14:42 | HHI.DS ---
Discharge Summary Admission Date Jun 20, 2016 at 07:18 Discharge Date: Jun 23, 2016 Admitting Diagnosis Dehydration, Fall, AMS (1) Gait disturbance Diagnosis: Principal (2) Dysarthria Diagnosis: Secondary (3) HTN (hypertension) Diagnosis: Secondary (4) Hx of hydrocephalus Diagnosis: Secondary (5) History of CVA (cerebrovascular accident) Diagnosis: Secondary Consultants Dr. Artie Cleary - Neurosurgery Brief History 85-year-old female with a history of previous CVA in 2012, hx of hydrocephalus s /p VPS placement, and dementia with a gradual decline over the last several months. The patient [place] [facility] with difficulty ambulating. Pt reportedly had difficulty ambulating on 06/19 and was dragging her right foot behind her and she had a fall however made no call to her [employer]. She was found on the floor. Pts healthcare administrative assistant reported that throughout the course of the day yesterday she was intermittently aphasic and had a left facial droop and one time. Pts family also reported at one point the pt had difficulty finding her worked and was slurring her speech. She arrived to the ER without any neurologic deficit or specific complaint however the family was concerned the patient might be dehydrated. Patient has history of PENSION CONSULTANT shunt performed by Dr. Rush at [facility] in 2012. Prior to this she had a CVA and had significant gait deficit, but after the ventriculoperitoneal shunt placement the ambulation significantly improved. She had a Head CT which noted no acute intracranial abnormality is identified, chronic changes include generalized cerebral atrophy and periventricular white matter low attenuation characteristic of chronic microvascular ischemia, and a right frontal PENSION CONSULTANT shunt is present with tubing in the midline of the frontal horns. Pt has been seen by Dr. Cleary and feels that her symptoms are likley more related to a TIA. Shunt study was performed and was negative. CBC/BMP: 06/20/16 0300 06/20/16 0336 Imaging Last Impressions Skull X-Ray 06/21/16 0000 Signed Impressions: Service Date/Time: Tuesday, June 21, 2016 15:00 - CONCLUSION: 1. Shunt valve setting has changed post MRI. Davion Luna MD Hip X-Ray 06/21/16 0000 Signed Impressions: Service Date/Time: Tuesday, June 21, 2016 14:50 - CONCLUSION: No acute fracture. Rashaun Velazquez MD Head Magnetic Resonance Angiography 06/21/16 0000 Signed Impressions: Service Date/Time: Tuesday, June 21, 2016 14:55 - CONCLUSION: Normal examination for a patient of this age. Davion Luna MD Brain MRI 06/21/16 0000 Signed Impressions: Service Date/Time: Tuesday, June 21, 2016 14:55 - CONCLUSION: 1. Right frontal ventriculostomy tube tip near foramen of Srivastava. Mild to moderate chronic white matter ischemic changes. No recent infarct, mass effect or shift. Davion Luna MD Shunt Study (Imaging) 06/20/16 1020 Signed Impressions: Service Date/Time: Monday, June 20, 2016 10:22 - CONCLUSION: Intact shunt. Av Bagley MD Head CT 06/20/16 0608 Signed Impressions: Service Date/Time: Monday, June 20, 2016 06:24 - CONCLUSION: 1. No acute intracranial abnormality is identified. 2. Chronic changes include generalized cerebral atrophy and periventricular white matter low attenuation characteristic of chronic microvascular ischemia. 3. A right frontal PENSION CONSULTANT shunt is present with tubing in the midline of the frontal horns. Gordo Cary MD Carotid Artery Ultrasound 06/20/16 0000 Signed Impressions: Service Date/Time: Monday, June 20, 2016 18:11 - CONCLUSION: No evidence for hemodynamically significant stenosis. Lucia Yanez MD Hospital Course Pt admitted with new onset gait disturbance with dragging her right foot behind her and she had a fall at home. Pts healthcare administrative assistant reported that throughout the course of the day yesterday she was intermittently aphasic and had a left facial droop and one time and one point the pt had difficulty finding her worked and was slurring her speech. She arrived to the ER without any neurologic deficit or specific complaint. Patient has history of PENSION CONSULTANT shunt performed by Dr. Rush at [facility] in 2012. Prior to this she had a CVA and had significant gait deficit, but after the ventriculoperitoneal shunt placement the ambulation significantly improved. She had a Head CT which noted no acute intracranial abnormality is identified, chronic changes include generalized cerebral atrophy and periventricular white matter low attenuation characteristic of chronic microvascular ischemia, and a right frontal PENSION CONSULTANT shunt is present with tubing in the midline of the frontal horns. Pt was seen by Dr. Cleary. Shunt study was performed and was negative. It was felt that her symptoms may have been related to a TIA given her history. MRI brain (06/21/16) --> NO acute findings. MRA Head (06/21/16) --> NO acute findings. Medtronic adjusted shunt valve from pressure of 1.5 to a pressure setting of 2.5 post-MRI. Carotid US (06/20/16) --> NO hemodynamically significant stenosis. Holter monitor (06/21/16 ) --> multiple episodes of SVT, possible atrial fibrillation, rate varied between 162 to 180 bpm, multiple PVCs observed, no significant pauses and no ventricular tachycardia observed. 2D echo (06/22/16) --> EF 60-65%, grade 1 diastolic dysfunction. Initially her lisinopril 20mg daily was resumed but after Holter Monitor resulted it was decided to change her to Metoprolol 25mg po BID and ASA 81mg po daily at discharge. She is being discharged to [facility] for rehab. She will have Clonidine 0.1mg Q6H PRN for systolic BP over 160 as well. Pt will need to followup with her PCP, Dr. Kanchan José, 1 week after discharge from SNF Pt will need to followup with Dr. Cleary in 3 weeks as well. Pt Condition on Discharge: Stable Discharge Disposition: Discharge to SNF Discharge Instructions DIET: Follow Instructions for: Heart Healthy Diet Activities you can perform: Weight Bearing as Mando Follow up Referrals: Neurosurgery - 3 Weeks with Artie Cleary MD PCP Follow-up - [address] Kanchan José New Medications: Aspirin (Aspirin) 81 Mg Chew 81 MG CHEW DAILY tia #31 Ref 0 TAB Metoprolol Tartrate (Metoprolol Tartrate) 25 Mg Tab 25 MG PO BID HTN and SVT #60 Ref 0 TAB Continued Medications: Hydrocodone-Acetaminophen (Lortab) 7.5-325 Mg Tab 1 TAB PO Q6H PRN PAIN #15 Ref 0 TAB (This prescription has been renewed) Levobunolol Opth Drops (Betagan Opth Drops) 0.5% Drops 1-2 DROP EACH EYE BID Glaucoma #1 Ref 0 BOTTLE Mirabegron (Myrbetriq) 25 Mg Tab 25 MG PO DAILY Urinary Symptom Managemen #30 Ref 0 TAB Tobramycin-Dexamethasone Opth Drops (Tobramycin-Dexamethasone Opth Drops) 0.3- 0.1 % Susp 1 DROP RIGHT EYE DAILY Infection/Inflammation #1 Ref 0 BOTTLE Discontinued Medications: Lisinopril (Lisinopril) 20 Mg Tab 20 MG PO DAILY #30 Ref 0 TAB Additional Information Patient examined. Assessment and plan formulated with Mary Gann PA-C. I agree with the above. Mary Gann Jun 23, 2016 14:42 Casey Enamorado DO Jun 25, 2016 19:07
[2016-06-23 15:57] VITALS: BP 111/58; PULSE 85; RESP 18; O2SAT 96
== END 2016-06-23 18:36 | disposition home or self-care (01) ==
LOC: NEDAMB 02:45 → NEDA 07:18 → NEPHCDU 13:54
PROVIDERS: ADMIT Hospitalist; ATTEND Hospitalist
DX: R47.1 Dysarthria and anarthria (principal); R47.01 Aphasia; R26.2 Difficulty in walking, not elsewhere classified; E86.0 Dehydration; I47.1 Supraventricular tachycardia; I12.9 Hypertensive chronic kidney disease with stage 1 through stage 4 chronic kidney disease, or unspecified chronic kidney disease; N18.3 Chronic kidney disease, stage 3 (moderate); F03.90 Unspecified dementia, unspecified severity, without behavioral disturbance, psychotic disturbance, mood disturbance, and anxiety; M41.9 Scoliosis, unspecified; H40.9 Unspecified glaucoma; Z85.3 Personal history of malignant neoplasm of breast; Z86.73 Personal history of transient ischemic attack (TIA), and cerebral infarction without residual deficits; W19.XXXA Unspecified fall, initial encounter; Y92.009 Unspecified place in unspecified non-institutional (private) residence as the place of occurrence of the external cause
CPT/HCPCS: 70250; 70450; 70544; 70551; 71010; 72040; 73502; 74000; 80048; 81001; 85027; 85610; 85730; 93225; 93226; 93306; 93880; 96360; 97163; 99285; G0378; G8987; G8988; J2060; J7030